=== PATIENT | male | born 1980 | race African-American/Black ===

== ENCOUNTER 2019-02-21 09:54 | Emergency (ER) | payer SELFPAY | END 2019-02-21 10:30 | disposition home or self-care (01) | LOC: ERS 09:54 | DX: J06.9 Acute upper respiratory infection, unspecified (principal) | CPT/HCPCS: 99283 ==

== ENCOUNTER 2019-04-19 08:47 | Emergency (ER) | payer SELFPAY | END 2019-04-19 10:24 | disposition home or self-care (01) | LOC: ERS 08:47 | DX: J06.9 Acute upper respiratory infection, unspecified (principal) | CPT/HCPCS: 87804; 99283 ==

== ENCOUNTER 2021-06-20 19:58 | Emergency (ER) | payer SELFPAY ==
[2021-06-20] MEDS ORDERED: Ondansetron PF 4 MG/2 ML Vial ONE (20:34)
[2021-06-20] MEDS ORDERED: Ondansetron ODT 4 MG TAB ONE (20:35)
[2021-06-20] MEDS ORDERED: Acetaminophen 500 MG TAB ONE (21:19)
[2021-06-20] MEDS ORDERED: Ibuprofen 200 MG TAB ONE (21:47)
[2021-06-21 19:45] LABS: SARS-CoV-2 PCR by NAA Not Detected (NotDetected)
== END 2021-06-20 21:52 | disposition home or self-care (01) ==
LOC: ERS 19:58
DX: J06.9 Acute upper respiratory infection, unspecified (principal); R11.2 Nausea with vomiting, unspecified; Z20.822 Contact with and (suspected) exposure to COVID-19
CPT/HCPCS: 87804; 99284; J2405; Q0162; U0003; U0005

== ENCOUNTER 2024-04-07 18:37 | Emergency (ER) | payer OTHER, SELFPAY ==
[2024-04-07] MEDS ORDERED: Ondansetron ODT 4 MG TAB ONE (19:38)
[2024-04-07] MEDS ORDERED: Ibuprofen 800 MG TAB ONE (19:38)
== END 2024-04-07 21:51 | disposition home or self-care (01) ==
LOC: ERS 18:37
DX: J10.1 Influenza due to other identified influenza virus with other respiratory manifestations (principal); F17.210 Nicotine dependence, cigarettes, uncomplicated
CPT/HCPCS: 87428; 99283; Q0162